=== PATIENT | female | born 1970 | race American Indian/Alaskan Native ===

== ENCOUNTER 2022-01-05 08:23 | Emergency (ER) | payer SELFPAY ==
[2022-01-05 08:28] VITALS: BP 160/90
--- NOTE | 2022-01-05 09:06 | Event Note ---
ED Screening Note ED Screening Note: Patient comes to the ER via EMS with abdominal pain. She was triaged in main ER and sent to the waiting room. She states that she was diagnosed with fibroids years ago at [facility]. She thinks that her fibroids causing her lower abdominal pain. This initial assessment/diagnostic orders/clinical plan/treatment(s) is/are subject to change based on patients health status, clinical progression and re- assessment by fellow clinical providers in the ED. Further treatment and workup at subsequent clinical providers discretion. Patient/guardian urged not to elope from the ED as their condition may be serious if not clinically assessed and managed. Initial orders include: Labs and UA ordered Pending placement for abdominal pain
[2022-01-05 10:55] LABS: Hematocrit 40.5 % (30.3-42.9); Hemoglobin 13.4 gm/dl (10.1-14.3); Mean Corpuscular HGB Conc 33 % (30-34); Mean Corpuscular Volume 86 fl (79-97); Platelet Count 190 K/mm3 (140-440); Red Blood Count 4.69 M/mm3 (3.65-5.03)
--- NOTE | 2022-01-05 10:56 | Emergency Department Report ---
ED Abdominal Pain HPI - General Chief Complaint: Abdominal Pain Stated Complaint: FIBROIDS Time Seen by Provider: 01/05/22 10:28 Source: patient, EMS Mode of arrival: Stretcher Limitations: No Limitations - History of Present Illness Severity scale (0 -10): 5 - Related Data Previous Rx's Medication Instructions Recorded Last Taken Type Sulfamethoxazole/Trimethoprim 1 each PO BID #10 tablet 01/05/22 Unknown Rx [Bactrim DS TAB] Allergies Allergy/AdvReac Type Severity Reaction Status Date / Time meperidine [From Demerol] Allergy Rash Verified 01/05/22 08:29 ED Review of Systems ROS: Stated complaint: FIBROIDS Other details as noted in HPI Comment: All other systems reviewed and negative ED Past Medical Hx - Past Medical History Previous Medical History?: Yes - Medications Home Medications: Home Medications Medication Instructions Recorded Confirmed Last Taken Type Sulfamethoxazole/Trimethoprim 1 each PO BID #10 tablet 01/05/22 Unknown Rx [Bactrim DS TAB] ED Physical Exam - General Limitations: No Limitations General appearance: alert, in no apparent distress - Head Head exam: Present: atraumatic, normocephalic - Eye Eye exam: Present: normal appearance - ENT ENT exam: Present: mucous membranes moist - Neck Neck exam: Present: normal inspection - Respiratory Respiratory exam: Present: normal lung sounds bilaterally. Absent: respiratory distress - Cardiovascular Cardiovascular Exam: Present: regular rate, normal rhythm. Absent: systolic murmur, diastolic murmur, rubs, gallop - GI/Abdominal GI/Abdominal exam: Present: soft, normal bowel sounds - Extremities Exam Extremities exam: Present: normal inspection - Back Exam Back exam: Present: normal inspection - Neurological Exam Neurological exam: Present: alert, oriented X3 - Psychiatric Psychiatric exam: Present: normal affect, normal mood - Skin Skin exam: Present: warm, dry, intact, normal color. Absent: rash ED Course Vital Signs 01/05/22 01/05/22 01/05/22 08:26 11:13 11:39 Temperature 98.4 F Pulse Rate 80 Respiratory 16 18 Rate Blood Pressure 160/90 [Left] O2 Sat by Pulse 100 99 Oximetry ED Medical Decision Making - Lab Data Result diagrams: 01/05/22 10:28 01/05/22 10:28 - Medical Decision Making Vital Signs 01/05/22 01/05/22 01/05/22 08:26 11:13 11:39 Temperature 98.4 F Pulse Rate 80 Respiratory 16 18 Rate Blood Pressure 160/90 [Left] O2 Sat by Pulse 100 99 Oximetry Labs 01/05/22 01/05/22 01/05/22 10:28 10:28 11:08 WBC 9.5 RBC 4.69 Hgb 13.4 Hct 40.5 MCV 86 MCH 29 MCHC 33 RDW 16.0 H Plt Count 190 Sodium 140 Potassium 4.1 Chloride 107.3 H Carbon Dioxide 19 L Anion Gap 18 BUN 13 Creatinine 1.0 Estimated GFR 58 BUN/Creatinine Ratio 13 Glucose 105 H Calcium 8.9 Total Bilirubin 0.30 AST 15 ALT 9 Alkaline Phosphatase 79 Total Protein 7.7 Albumin 3.9 Albumin/Globulin Ratio 1.0 Urine Color Yellow Urine Turbidity Slightly-cloudy Urine pH 8.0 H Ur Specific [place] 1.008 Urine Protein 30 mg/dl Urine Glucose (UA) Neg Urine Ketones Neg Urine Blood Mod Urine Nitrite Neg Urine Bilirubin Neg Urine Urobilinogen < 2.0 Ur Leukocyte Esterase Lg Urine WBC (Auto) > 182.0 H Urine RBC (Auto) 87.0 U Epithel Cells (Auto) < 1.0 Urine Bacteria (Auto) 4+ Urine Mucus Few medicated with 1gm IM rocephin - Differential Diagnosis ro uti Critical care attestation.: If time is entered above; I have spent that time in minutes in the direct care of this critically ill patient, excluding procedure time. ED Disposition Clinical Impression: UTI (urinary tract infection) Qualifiers: Urinary tract infection type: site unspecified Hematuria presence: with hematuria Qualified Code(s): N39.0 - Urinary tract infection, site not specified; R31.9 - Hematuria, unspecified Disposition: 01 HOME / SELF CARE / HOMELESS Is pt being admited?: No Does the pt Need Aspirin: No Condition: Stable Instructions: Abdominal Pain (ED), Urinary Tract Infection, Adult Additional Instructions: Diet and activity as tolerated stay well-hydrated with water Motrin or Tylenol for pain Antibiotic as ordered today After you complete antibiotic follow-up with PCP to make sure this is gone away I have given you referral to a primary care doctor for your nonmedical emergencies See below Referrals: NATTY HERNANDEZ MD [Staff Physician] - 3-5 Days Time of Disposition: 12:52
[2022-01-05] MEDS ORDERED: ACETAMINOPHEN 500 MG TAB PO ONE (11:23)
[2022-01-05 11:51] LABS: Albumin 3.9 g/dL (3.9-5); Calcium 8.9 mg/dL (8.4-10.2)
[2022-01-05 12:13] LABS: Bacteria,Urine 4+ /HPF (Negative); Bilirubin,Urine NEG (Negative); Blood,Urine MOD (Negative); Color,Urine Yellow (Yellow); Mucus,Urine FEW /HPF; Urobilinogen,Urine < 2.0 mg/dL (<2.0)
[2022-01-05 12:42] LABS: WBC,Urine > 182.0 /HPF (0.0-6.0)
[2022-01-05] MEDS ORDERED: LIDOCAINE-MPF (1%) 10 MG/1 ML VIAL 5 ML INFILTRATI ONE (12:50)
== END 2022-01-05 13:41 | disposition home or self-care (01) ==
LOC: ED 08:23
DX: N39.0 Urinary tract infection, site not specified (principal)
CPT/HCPCS: 36415; 80053; 81001; 85027; 96372; 99284; J0696; J3490